=== PATIENT | female | born 1945 | race Hispanic/Latino ===

== ENCOUNTER 2017-04-29 09:01 | Inpatient (IN) | payer MEDICARE, OTHER ==
[~2017-04-29] VITALS: Ht 154.9 cm; Wt 86.6 kg
[~2017-04-29 09:01] MED LIST: ASPIRIN325 MG PO; FERROUS SULFAT324 MG PO; HAIR, SKIN & N1 EACH PO; LOSARTAN POTAS100 MG PO; NORCO 7.5-3251 EACH PO; ONE DAILY1 EAC1 PO
[2017-04-29] MEDS ORDERED: ASPIRIN 81 MG CHEW TAB PO ONE (09:45)
[2017-04-29 09:59] LABS: BASOPHILS # (AUTO) 0.1 (0.0-0.1); BASOPHILS % 0.7 % (0.0-1.0); EOSINOPHILS # (AUTO) 0.2 (0.0-0.4); EOSINOPHILS % 1.8 % (0.0-6.0); HEMATOCRIT 42.8 % (34.2-44.1); HEMOGLOBIN 15.1 g/dL (12.0-16.0); LYMPHOCYTES # (AUTO) 2.4 (1.0-3.2); LYMPHOCYTES % 28.3 % (18.0-39.1); MEAN CORPUSCULAR HEMOGLOBIN 33.2 pg (28-32); MEAN CORPUSCULAR HGB CONC 35.3 g/dL (31-35); MEAN CORPUSCULAR VOLUME 94.1 fL (81-99); MONOCYTES # (AUTO) 0.6 (0.2-0.8); MONOCYTES % 7.1 % (4.4-11.3); NEUTROPHILS # (AUTO) 5.2 (2.1-6.9); NEUTROPHILS % 61.7 % (38.7-80.0); PLATELET COUNT 167 x10e3/uL (140-360); RED BLOOD COUNT 4.55 x10e6/uL (3.6-5.1); RED CELL DISTRIBUTION WIDTH 12.6 % (11.7-14.4)
[2017-04-29 10:05] LABS: INR 1.06; PARTIAL THROMBOPLASTIN TIME 27.1 seconds (23.8-35.5)
[2017-04-29 10:07] LABS: BILIRUBIN,URINE NEGATIVE (NEGATIVE); COLOR,URINE YELLOW (YELLOW); KETONES,URINE NEGATIVE (NEGATIVE); LEUKOCYTE ESTERASE ,URINE NEGATIVE (NEGATIVE); NITRITE,URINE NEGATIVE (NEGATIVE); PROTEIN,URINE DIPSTICK NEGATIVE (NEGATIVE); URINE UROBILINOGEN 4 mg/dL (0.2 - 1)
[2017-04-29 10:12] LABS: CLARITY,URINE SL CLOUDY (CLEAR)
[2017-04-29 10:14] LABS: ALANINE AMINOTRANSFERASE 64 IU/L (0-55); ALBUMIN 4.1 g/dL (3.5-5.0); ALBUMIN/GLOBULIN RATIO 0.9 (0.8-2.0); ALKALINE PHOSPHATASE 108 IU/L (40-150); ANION GAP 16.4 mmol/L (8-16); BLOOD UREA NITROGEN 30 mg/dL (7-26); BUN/CREATININE RATIO 32 (6-25); CALCIUM 9.1 mg/dL (8.4-10.2); CARBON DIOXIDE 20 mmol/L (22-29); CHLORIDE 112 mmol/L (98-107); CREATINE KINASE 213 IU/L (29-168); CREATININE, SERUM 0.94 mg/dL (0.57-1.11); EST GLOMERULAR FILTRATION RATE 59 ML/MIN (60-); GLUCOSE 105 mg/dL (74-118); SODIUM 144 mmol/L (136-145)
[2017-04-29 10:15] LABS: POTASSIUM 4.4 mmol/L (3.5-5.1)
[2017-04-29 10:16] LABS: AMPHETAMINES SCREEN,URINE NEGATIVE (NEGATIVE); BENZODIAZEPINES SCREEN,URINE NEGATIVE (NEGATIVE); PHENCYCLIDINE SCREEN,URINE NEGATIVE (NEGATIVE)
[2017-04-29] MEDS ORDERED: MELOXICAM7.5 MG PO (10:21)
[2017-04-29] MEDS ORDERED: vimovo PO (10:21)
[2017-04-29] MEDS ORDERED: CYCLOBENZAPRINE5 MG PO (10:21)
[2017-04-29] MEDS ORDERED: GABAPENTIN100 MG PO (10:21)
[2017-04-29 10:23] LABS: EPITHELIAL CELLS,URINE MODERATE /LPF; WBC,URINE (MAN) 0-5 /HPF (0-5)
--- NOTE | 2017-04-29 10:29 | Diagnostic Imaging Report ---
Exam: Head CT without contrast History: Altered mental status Comparison studies: None Technique: Axial images were obtained from the skull base to the vertex. Coronal and sagittal images reconstructed from the axial data. Intravenous contrast: None Findings: Scalp: No abnormalities. Bones: No fractures, blastic or lytic lesions. Brain sulci: Appropriate for age. Ventricles: Normal in size and configuration. No hydrocephalus. Extra-axial spaces: No masses, no fluid collection. Parenchyma: A few scattered hypodensities in the supratentorial white matter are nonspecific but most compatible with small vessel ischemic changes. No mass, acute hemorrhage or acute or chronic cortical vascular insults. Sellar/suprasellar region: No abnormalities. Craniocervical junction: Patent foramen magnum. No Chiari one malformation. Incidental findings: Atherosclerotic calcifications in the carotid siphons. IMPRESSION: 1. No acute intracranial abnormalities. 2. Mild to moderate supratentorial chronic microvascular ischemic changes. Signed by: Dr. Ankit Monreal M.D. on 04/29/2017 10:25 AM
--- NOTE | 2017-04-29 10:32 | Diagnostic Imaging Report ---
EXAMINATION: CHEST SINGLE (PORTABLE) INDICATION: \S\SOB \S\[id number] \S\1012 \S\Y COMPARISON: 08/12/2016 FINDINGS: AP view TUBES and LINES: None. LUNGS: Limited by body habitus and low lung volumes. Mild central vascular congestion and interstitial edema. No focal consolidation. PLEURA: No pleural effusion or pneumothorax. HEART AND MEDIASTINUM: The cardiac silhouette is enlarged on this AP view. BONES AND SOFT TISSUES: No acute osseous lesion. Soft tissues are unremarkable. UPPER ABDOMEN: No free air under the diaphragm. IMPRESSION: Limited as above. Mild central vascular congestion and interstitial edema. Signed by: Dr. Tyron Jorge MD on 04/29/2017 10:28 AM
[2017-04-29] MEDS ORDERED: ONDANSETRON HCL INJ 2 MG/ML VIAL IV PRN (11:30)
[2017-04-29] MEDS: SODIUM CHLORIDE 0.9% 1000ML 1,000 ML IV SCH ×2 (11:38→15:19)
[2017-04-29] MEDS ORDERED: SODIUM CHLORIDE 0.9% 1000ML 1,000 ML ONE (11:44)
[2017-04-29] MEDS ORDERED: SODIUM CHLORIDE 0.9% 50ML 50 ML ONE (12:23)
[2017-04-29] MEDS ORDERED: IOPAMIDOL 370 MG/ML 200 ML INFUS..BTL INJ ONE (12:24)
--- NOTE | 2017-04-29 12:37 | Diagnostic Imaging Report ---
EXAM: CT Abdomen and Pelvis WITH contrast INDICATION: \S\R/O CIRRHOSIS OR OTHER HEPATIC PROBLEM \S\[id number] \S\1200 \S\N COMPARISON: None. TECHNIQUE: Abdomen and pelvis were scanned utilizing a multidetector helical scanner from the lung base to the pubic symphysis after administration of IV contrast. Coronal and sagittal reformations were obtained. Routine protocol was performed. Scan was performed when during portal venous phase. IV CONTRAST: 100 mL of Isovue-370 ORAL CONTRAST: None. COMPLICATIONS: None RADIATION DOSE: Total DLP: 875.41 mGy*cm Estimated effective dose: (DLP x 0.015 x size factor) mSv CTDIvol has been reviewed. It is below the limits set by the Radiation Protocol Committee (RPC). FINDINGS: LINES and TUBES: None. LOWER THORAX: Unremarkable HEPATOBILIARY: No signs of cirrhosis. No focal hepatic lesions. No biliary ductal dilation. GALLBLADDER: No radio-opaque stones or sludge. No wall thickening. SPLEEN: No splenomegaly. PANCREAS: No focal masses or ductal dilatation. ADRENALS: No adrenal nodules KIDNEYS/URETERS: Kidneys enhance symmetrically. No hydronephrosis. No renal mass. Bilateral subcentimeter renal hypodensities are too small to characterize. No stones. GI TRACT: No abnormal distention, wall thickening, or evidence of bowel obstruction. Appendix is not visualized. PELVIC ORGANS/BLADDER: Calcified anterior uterine body fibroid. 7 x 5.9 cm right ovarian cyst. LYMPH NODES: No lymphadenopathy. VESSELS: Unremarkable. PERITONEUM / RETROPERITONEUM: No free air or fluid. BONES: Degenerative changes of spine, especially at L5-S1. SOFT TISSUES: Unremarkable. IMPRESSION: 1. No evidence of hepatic cirrhosis. 2. 7 cm right ovarian cyst. Recommend RED CROSS EXECUTIVE DIRECTOR consult. Signed by: Dr. Tyron Jorge MD on 04/29/2017 12:33 PM
--- OUTSIDE RECORDS SUMMARY | 2017-04-29 13:27 | XMS REPORT ---
[facility] Address Unknown Phone Unavailable Care Team Providers Care Trade Mark Examiner Name Role Phone FREDI CAMEJO Unavailable Unavailable Problems This patient has no known problems. Allergies, Adverse Reactions, Alerts This patient has no known allergies or adverse reactions. Medications This patient has no known medications. Results Test Description Test Time Test Comments Text Results Atomic Results Result Comments CT ABDOMEN/PELVIS W [place] [address] Patient Name: TIMOTHY HARGROVE MR #: [id number] : 1945 Age/Sex: 71/F Req # : [id number] Adm Physician: Ordered by: FREDI CAMEJO MD Report #: [id number] Location: ER Room/Bed: Procedure: [id number] CT/CT ABDOMEN/PELVIS W Exam Date: 04/29/17 Exam Time : 1200 REPORT STATUS: Signed EXAM: CT Abdomen and Pelvis WITH contrast INDICATION: COMPARISON: None. TECHNIQUE: Abdomen and pelvis were scanned utilizing a multidetector helical scanner from the lung base to the pubic symphysis after administration of IV contrast. Coronal and sagittal reformations were obtained. Routine protocol was performed. Scan was performed when during portal venous phase. IV CONTRAST: 100 mL of Isovue-370 ORAL CONTRAST: None. COMPLICATIONS: None RADIATION DOSE: Total DLP: 875.41 mGy*cm Estimated effective dose: (DLP x 0.015 x size factor) mSv CTDIvol has been reviewed. It is below the limits set by the Radiation Protocol Committee (RPC). FINDINGS : LINES and TUBES: None. LOWER THORAX: Unremarkable HEPATOBILIARY: No signs of cirrhosis. No focal hepatic lesions. No biliary ductal dilation. GALLBLADDER: No radio-opaque stones or sludge. No wall thickening. SPLEEN: No splenomegaly. PANCREAS: No focal masses or ductal dilatation. ADRENALS: No adrenal nodules KIDNEYS/URETERS : Kidneys enhance symmetrically. No hydronephrosis. No renal mass. Bilateral subcentimeter renal hypodensities are too small to characterize. No stones. GI TRACT: No abnormal distention, wall thickening, or evidence of bowel obstruction. Appendix is not visualized. PELVIC ORGANS/BLADDER: Calcified anterior uterine body fibroid. 7 x 5.9 cm right ovarian cyst. LYMPH NODES: No lymphadenopathy. VESSELS: Unremarkable. PERITONEUM / RETROPERITONEUM: No free air or fluid. BONES: Degenerative changes of spine , especially at L5-S1. SOFT TISSUES: Unremarkable. IMPRESSION: 1. No evidence of hepatic cirrhosis. 2. 7 cm right ovarian cyst. Recommend CHIEF COUNSEL consult. Signed by: Dr. Tyron Au MD on 04/29/2017 12:33 PM Dictated By: TYRON AU MD 1233 Transcribed By: ABBY on 04/29/17 1233 COPY TO: FREDI CAMEJO MD CT BRAIN WO [place] [address] Patient Name: TIMOTHY HARGROVE MR #: [id number] : 1945 Age/Sex: 71/F Req #: [id number] Adm Physician: Ordered by: FREDI CAMEJO MD Report #: [id number] Location: Room/Bed: Procedure: [id number] CT/CT BRAIN WO Exam Date: 04/29/17 Exam Time: 1005 REPORT STATUS: Signed Exam: Head CT without contrast History: Altered mental status Comparison studies: None Technique: Axial images were obtained from the skull base to the vertex. Coronal and sagittal images reconstructed from the axial data. Intravenous contrast: None Findings: Scalp: No abnormalities. Bones: No fractures, blastic or lytic lesions. Brain sulci: Appropriate for age. Ventricles: Normal in size and configuration. No hydrocephalus. Extra-axial spaces: No masses, no fluid collection. Parenchyma: A few scattered hypodensities in the supratentorial white matter are nonspecific but most compatible with small vessel ischemic changes. No mass, acute hemorrhage or acute or chronic cortical vascular insults. Sellar/suprasellar region: No abnormalities. Craniocervical junction: Patent foramen magnum. No Chiari one malformation. Incidental findings: Atherosclerotic calcifications in the carotid siphons. IMPRESSION: 1. No acute intracranial abnormalities. 2. Mild to moderate supratentorial chronic microvascular ischemic changes. Signed by: Dr. Caty Monreal M.D. on 04/29/2017 10:25 AM Dictated By: CATY MONREAL MD 1025 Transcribed By: ABBY on 04/29/17 1025 COPY TO: FREDI CAMEJO MD [facility] [place] [address] Patient Name: TIMOTHY HARGROVE MR #: [id number] : 1945 Age/Sex: 71/F Req #: [id number] Adm Physician: Ordered by: FREDI CAMEJO MD Report # : [id number] Location: Room/Bed: Procedure: [id number] DX/CHEST SINGLE (PORTABLE) Exam Date: 04/29/17 Exam Time: 1012 REPORT STATUS: Signed EXAMINATION: CHEST SINGLE ( PORTABLE) INDICATION: COMPARISON: 08/12/2016 FINDINGS: AP view TUBES and LINES: None. LUNGS: Limited by body habitus and low lung volumes. Mild central vascular congestion and interstitial edema. No focal consolidation. PLEURA: No pleural effusion or pneumothorax. HEART AND MEDIASTINUM: The cardiac silhouette is enlarged on this AP view. BONES AND SOFT TISSUES: No acute osseous lesion. Soft tissues are unremarkable. UPPER ABDOMEN: No free air under the diaphragm. IMPRESSION: Limited as above. Mild central vascular congestion and interstitial edema. Signed by: Dr. Tyron Au MD on 04/29/2017 10:28 AM Dictated By: TYRON AU MD 1028 Transcribed By: ABBY on 04/29/17 1028 COPY TO: FREDI CAMEJO MD
[2017-04-29] MEDS: LACTULOSE SYRUP 20 GM/30 ML UDC PO SCH ×2 (14:27→22:00)
[2017-04-29 14:33] VITALS: BP 162/76
[2017-04-29 14:45] VITALS: BP 162/76
[2017-04-29 16:06] VITALS: BP 176/72
[2017-04-29] MEDS: RIFAXIMIN 550 MG TABLET PO SCH (16:57)
[2017-04-29] MEDS ORDERED: LOSARTAN POTASSIUM 100 MG TAB PO ONE (17:00)
[2017-04-29] MEDS ORDERED: GABAPENTIN 100 MG CAP PO SCH (17:00)
[2017-04-29 20:29] VITALS: BP 176/72
[2017-04-29 20:36] VITALS: BP 155/86
[2017-04-29] MEDS ORDERED: CYCLOBENZAPRINE HCL 10 MG TAB PO SCH (21:00)
[2017-04-30] VITALS (8 sets, daily range): BP systolic 128–178; BP diastolic 58–76
[2017-04-30] MEDS: SODIUM CHLORIDE 0.9% 1000ML 1,000 ML IV SCH ×2 (03:35→11:26)
[2017-04-30] MEDS: LACTULOSE SYRUP 20 GM/30 ML UDC PO SCH ×2 (06:12→16:20)
[2017-04-30 06:49] LABS: BASOPHILS # (AUTO) 0.1 (0.0-0.1); BASOPHILS % 0.7 % (0.0-1.0); EOSINOPHILS # (AUTO) 0.2 (0.0-0.4); EOSINOPHILS % 2.4 % (0.0-6.0); HEMATOCRIT 40.3 % (34.2-44.1); HEMOGLOBIN 13.9 g/dL (12.0-16.0); LYMPHOCYTES # (AUTO) 2.4 (1.0-3.2); LYMPHOCYTES % 28.7 % (18.0-39.1); MEAN CORPUSCULAR HEMOGLOBIN 33.3 pg (28-32); MEAN CORPUSCULAR HGB CONC 34.5 g/dL (31-35); MEAN CORPUSCULAR VOLUME 96.4 fL (81-99); MONOCYTES # (AUTO) 0.6 (0.2-0.8); MONOCYTES % 6.9 % (4.4-11.3); NEUTROPHILS # (AUTO) 5.2 (2.1-6.9); NEUTROPHILS % 61.1 % (38.7-80.0); PLATELET COUNT 163 x10e3/uL (140-360); RED BLOOD COUNT 4.18 x10e6/uL (3.6-5.1); RED CELL DISTRIBUTION WIDTH 12.7 % (11.7-14.4)
[2017-04-30 07:11] LABS: ANION GAP 14.2 mmol/L (8-16); BLOOD UREA NITROGEN 25 mg/dL (7-26); BUN/CREATININE RATIO 28 (6-25); CALCIUM 8.8 mg/dL (8.4-10.2); CARBON DIOXIDE 20 mmol/L (22-29); CHLORIDE 113 mmol/L (98-107); CREATININE, SERUM 0.88 mg/dL (0.57-1.11); EST GLOMERULAR FILTRATION RATE > 60 ML/MIN (60-); GLUCOSE 89 mg/dL (74-118); POTASSIUM 4.2 mmol/L (3.5-5.1); SODIUM 143 mmol/L (136-145)
[2017-04-30 08:03] LABS: CHOL/HDL RATIO 3.8 (3.0-3.6)
[2017-04-30] MEDS: MELOXICAM 7.5 MG TAB PO SCH (08:38)
[2017-04-30] MEDS: LOSARTAN POTASSIUM 100 MG TAB PO SCH (08:38)
[2017-04-30] MEDS: RIFAXIMIN 550 MG TABLET PO SCH (08:38)
[2017-04-30] MEDS: FERROUS SULFATE 325 MG TAB PO SCH (08:38)
[2017-04-30] MEDS: VIMOVO PO SCH (09:00)
--- NOTE | 2017-04-30 12:46 | History and Physical ---
REASON FOR ADMISSION: This 71-year-old female comes in with acute mental status changes. HISTORY OF PRESENT ILLNESS: Ms. Crews was in her usual state of health until a day prior to admission. The patient's family noticed mental status changes, which were acute. No prior history of dementia. No prior history of taking any medications prior to arrival. The patient was brought in to rule out stroke. The patient usually is alert and oriented with no symptoms. The patient had a similar episode about a week ago with slurred speech and had a facial droop for the last 2 to 3 days. The patient has been seen recently also by her primary care physician. PAST MEDICAL HISTORY: History of hypertension. FAMILY HISTORY: Diabetes mellitus and hypertension. MEDICATIONS SHE TAKES AT HOME: Flexeril, ferrous sulfate, gabapentin 100 mg 3 capsules p.o. b.i.d., losartan 100 mg, meloxicam 7.5, and 520. SURGICAL HISTORY: Includes a hysterectomy and bilateral knee replacement. REVIEW OF SYSTEMS: Negative for chest pain or shortness of breath. No nausea or vomiting. Past episode of abdominal pain in right upper quadrant of abdomen. Neurologically, positive for mental status changes. Positive for weakness, especially on the right side. No other complaints. PHYSICAL EXAMINATION GENERAL: Alert and oriented times 3 right now. According to the ER note, the patient was not alert. HEENT: Normocephalic and atraumatic. There is no icterus present. CV: S1 and S2 normal, regular rate and rhythm. ABDOMEN: Tender in the right upper quadrant. EXTREMITIES: No clubbing, no cyanosis, no edema. IMAGING STUDIES: CT of the abdomen did not show any changes in her for hepatic cirrhosis. Carotid Doppler preliminary report is no stenosis. Brain CT: Microvascular changes, otherwise normal. Chest x-ray was also within normal with mild vascular congestion. LABS: Sodium 144, chloride 112, BUN 30, creatinine 0.94. ALT and AST 70 and 64 and total bili of 1.5. Creatine kinase is 213. The rest of the labs are essentially normal. Ammonia was 117. ASSESSMENT 1. Acute mental status changes 2. Hyperammonemia. 3. Abdominal pain and hyperbilirubinemia. 4. History of hypertension. PLAN 1. We will go ahead and follow through with an ultrasound of the gallbladder and also HIDA scan in the morning. 2. Continue checking ammonia levels to see if it is trending down. The patient has been started on lactulose. She has been hydrated. Right now, we will keep her under hydration and keep n.p.o. right now until the HIDA scan is back. 3. Further recommendations per clinical course. We will continue to monitor the patient. Her mental status seems to be improving. Also, will check lipid levels. Job#: [id number]
[2017-04-30] MEDS ORDERED: CLONIDINE HCL 0.1 MG TAB PO PRN (15:30)
[2017-04-30] MEDS ORDERED: ACETAMINOPHEN 325 MG TAB PO PRN (15:30)
[2017-05-01] VITALS (8 sets, daily range): BP systolic 115–181; BP diastolic 53–82
[2017-05-01] MEDS: SODIUM CHLORIDE 0.9% 1000ML 1,000 ML IV SCH ×2 (01:30→21:30)
[2017-05-01 07:05] LABS: BASOPHILS # (AUTO) 0.1 (0.0-0.1); BASOPHILS % 0.6 % (0.0-1.0); EOSINOPHILS # (AUTO) 0.3 (0.0-0.4); EOSINOPHILS % 3.4 % (0.0-6.0); HEMOGLOBIN 13.8 g/dL (12.0-16.0); LYMPHOCYTES % 22.8 % (18.0-39.1); MEAN CORPUSCULAR HEMOGLOBIN 33.2 pg (28-32); MEAN CORPUSCULAR HGB CONC 34.5 g/dL (31-35); MEAN CORPUSCULAR VOLUME 96.2 fL (81-99); MONOCYTES # (AUTO) 0.6 (0.2-0.8); MONOCYTES % 6.4 % (4.4-11.3); NEUTROPHILS # (AUTO) 5.9 (2.1-6.9); NEUTROPHILS % 66.6 % (38.7-80.0); PLATELET COUNT 143 x10e3/uL (140-360); RED BLOOD COUNT 4.16 x10e6/uL (3.6-5.1); RED CELL DISTRIBUTION WIDTH 12.6 % (11.7-14.4)
[2017-05-01 07:31] LABS: ALANINE AMINOTRANSFERASE 50 IU/L (0-55); ALBUMIN 3.3 g/dL (3.5-5.0); ALBUMIN/GLOBULIN RATIO 0.9 (0.8-2.0); ALKALINE PHOSPHATASE 82 IU/L (40-150); ANION GAP 9.5 mmol/L (8-16); BLOOD UREA NITROGEN 20 mg/dL (7-26); BUN/CREATININE RATIO 24 (6-25); CALCIUM 8.6 mg/dL (8.4-10.2); CARBON DIOXIDE 23 mmol/L (22-29); CHLORIDE 114 mmol/L (98-107); CREATININE, SERUM 0.84 mg/dL (0.57-1.11); EST GLOMERULAR FILTRATION RATE > 60 ML/MIN (60-); GLUCOSE 99 mg/dL (74-118); POTASSIUM 4.5 mmol/L (3.5-5.1); SODIUM 142 mmol/L (136-145)
[2017-05-01] MEDS: LACTULOSE SYRUP 20 GM/30 ML UDC PO SCH ×2 (09:00→17:32)
[2017-05-01] MEDS: VIMOVO PO SCH (09:00)
[2017-05-01] MEDS ORDERED: SINCALIDE 3 MCG/VIAL INJ ONE (09:02)
[2017-05-01] MEDS: FERROUS SULFATE 325 MG TAB PO SCH (10:30)
[2017-05-01] MEDS: LOSARTAN POTASSIUM 100 MG TAB PO SCH (10:37)
[2017-05-01] MEDS: MELOXICAM 7.5 MG TAB PO SCH (10:38)
--- NOTE | 2017-05-01 15:54 | Diagnostic Imaging Report ---
PROCEDURE:US GALLBLADDER COMPARISON:None. INDICATIONS:ABDOMEN PAIN TECHNIQUE: Livingston-scale and color Doppler transverse and longitudinal images of the right upper quadrant of the abdomen were obtained. FINDINGS: Liver: 13.3 cm in right mid-clavicular line. Increased echogenicity. No masses. No intrahepatic biliary ductal dilatation. Main portal vein: 0.6 cm Gallbladder: Present. No evidence of sludge, gallstones, gallbladder wall thickening, or pericholecystic fluid Common Bile Duct: 0.3 cm Sonographic Mccormack's sign: Negative Right kidney: 9.8 cm. Normal echogenicity. No solid masses or hydronephrosis. Pancreas: The visualized portions are increased in echotexture without mass or ductal dilatation.. Inferior vena cava: Patent Aorta: Within normal limits Ascites: None in the right upper quadrant of the abdomen. CONCLUSION: 1. Increased hepatic echotexture suggestive of steatosis. 2. Pancreas lipomatosis. 3. Normal gallbladder and biliary tree. Dictated by: Gabriel Cantor M.D. on 05/01/2017 at 15:54 Electronically approved by: Gabriel Cantor M.D. on 05/01/2017 at 15:54
--- NOTE | 2017-05-01 20:35 | Diagnostic Imaging Report ---
Hepatobiliary Scan with Gallbladder Ejection Fraction Clinical information: 71 F with abdominal pain and hyperbilirubinemia Technique: Following intravenous administration of 5.0 millicuries of Tc-99m mebrofenin, dynamic images of the abdomen in the anterior projection were obtained through 40 minutes. Sincalide (CCK analog) 2.0 micrograms was administered intravenously over 30 minutes with additional imaging for determination of gallbladder ejection fraction. Discussion: Perfusion of the liver is normal. Extraction of tracer by the liver parenchyma is normal. Tracer appears promptly within the biliary tract. The gallbladder begins to fill at 10 minutes post injection of tracer and fills adequately. Tracer is seen in the small bowel during the sincalide infusion. There is no contractile response by the gallbladder to the pharmacologic dose of sincalide. No emptying of the gallbladder occurs during the 30 minute infusion. Impression: 1. Filling of the gallbladder excludes acute cystic duct obstruction/acute cholecystitis. 2. The gallbladder ejection fraction is undefined as there is no emptying of the gallbladder during the infusion of sincalide. This absence of a contractile response to sincalide supports the clinical diagnosis of chronic cholecystitis/gallbladder dyskinesia. Signed by: Dr. Mela Segura M.D. on 05/01/2017 8:32 PM
[2017-05-02] VITALS: BP 141/65
[2017-05-02] MEDS: SODIUM CHLORIDE 0.9% 1000ML 1,000 ML IV SCH (00:03)
[2017-05-02 04:00] VITALS: BP 143/66
[2017-05-02 08:34] VITALS: BP 163/69
[2017-05-02] MEDS: MELOXICAM 7.5 MG TAB PO SCH (09:00)
[2017-05-02] MEDS: FERROUS SULFATE 325 MG TAB PO SCH (09:00)
[2017-05-02] MEDS: VIMOVO PO SCH ×2 (09:00→10:05)
[2017-05-02] MEDS: LACTULOSE SYRUP 20 GM/30 ML UDC PO SCH ×2 (09:00→16:13)
[2017-05-02] MEDS: LOSARTAN POTASSIUM 100 MG TAB PO SCH ×2 (09:00→10:04)
--- NOTE | 2017-05-02 10:53 | Diagnostic Imaging Report ---
Exam: Brain MRI without IV contrast History: Altered mental status Comparison studies: Head CT 04/29/2017 Technique: Sagittal and axial T2 FS, axial DWI, axial T2*GRE, axial T2 FLAIR and 3-D T1 with axial, coronal and sagittal reformats. Intravenous contrast: None Findings: Scalp: Oral and signal. No masses. Bone marrow: Normal in signal intensity. Brain sulci: Appropriate for age. Ventricles: Normal in size. No hydrocephalus. Extra axial spaces: Normal T2 hyperintense CSF signal at the Meckel's cave on the right is not visualized when compared to the contralateral left side. Finding is nonspecific but raises the possibility for intracanalicular mass, such as a nerve sheath tumor. No gross atrophy of the included muscles of mastication. No other mass. No fluid collection. Parenchyma: No mass, hemorrhage or acute ischemia. A few scattered and mildly confluent T2 FLAIR hyperintense signal changes in the supratentorial white matter are nonspecific but most compatible with chronic small vessel ischemic changes. Suprasellar region: No abnormalities. Craniocervical junction: Patent foramen magnum. No Chiari malformation. Vessels: Normal flow-voids in the arteries and sinuses. IMPRESSION: 1. No acute intracranial abnormalities. 2. Moderate supratentorial chronic microvascular ischemic changes. 3. Absence of normal signal within right Meckel's cave may be an anatomical variant or possibly related to small intracanalicular mass lesion such as small nerve sheath tumor or possibly meningioma. Finding's could be correlated clinically for symptoms referrable to the right trigeminal nerve. Recommend nonemergent skull base MRI without and with IV contrast to further evaluate. Signed by: Dr. Ankit Monreal M.D. on 05/02/2017 10:50 AM
[2017-05-02 12:00] VITALS: BP 120/56
[2017-05-02 15:52] VITALS: BP 117/55
[2017-05-02 20:00] VITALS: BP 115/69
[2017-05-03] VITALS (8 sets, daily range): BP systolic 100–161; BP diastolic 49–76
[2017-05-03] MEDS: LACTULOSE SYRUP 20 GM/30 ML UDC PO SCH ×2 (09:00→16:40)
[2017-05-03] MEDS: LOSARTAN POTASSIUM 100 MG TAB PO SCH (10:17)
[2017-05-03] MEDS: MELOXICAM 7.5 MG TAB PO SCH (16:40)
[2017-05-03] MEDS: FERROUS SULFATE 325 MG TAB PO SCH (16:40)
== END 2017-05-03 20:32 | disposition home or self-care (01) | DRG 442 ==
LOC: ER 09:01 → EDBEDREQ 11:45 → ERHOLD 13:22 → MED/SURG 13:26
PROVIDERS: ADMIT Family Medicine; ATTEND Family Medicine
DX: K72.00 Acute and subacute hepatic failure without coma (principal); R47.01 Aphasia; E72.20 Disorder of urea cycle metabolism, unspecified; E80.6 Other disorders of bilirubin metabolism; I10 Essential (primary) hypertension; Z96.653 Presence of artificial knee joint, bilateral; N83.209 Unspecified ovarian cyst, unspecified side
CPT/HCPCS: 36415; 70450; 70551; 71045; 74177; 76705; 78227; 80048; 80053; 80061; 80307; 81001; 82140; 82550; 82553; 84443; 84484; 85025; 85610; 85730; 93005; 93880; 97139; 99285; A9537; J2405; J2805; J7030; Q9967

== ENCOUNTER → 2017-05-29 | Outpatient (CLI) | payer MEDICARE, OTHER ==
[~2017-05-29] MED LIST changes: +CYCLOBENZAPRINE5 MG PO; +GABAPENTIN100 MG PO; +MELOXICAM7.5 MG PO; +vimovo PO
--- NOTE | 2017-05-29 16:20 | Diagnostic Imaging Report ---
Liver-Spleen Scan with SPECT Clinical information: 71 F with elevated LFTs and right sided abdominal pain that radiates to her back. Abnormal gallbladder ejection fraction with sincalide Comparison: HIDA scan with sincalide 05/01/2017; CT abdomen 04/29/2017 Report: Following intravenous administration of 7.3 mCi of Tc-99 and sulfur colloid, images of the liver and spleen were obtained in multiple projections. Tomographic images of the upper abdomen were also obtained. The liver appears generally normal in size. The spleen appears normal in size. Distribution of tracer activity is homogeneous throughout the hepatic and splenic parenchyma. No focal abnormalities are identified. There is very mildly increased tracer activity seen in the bone marrow and lungs. There is no apparent shift of tracer activity from the hepatic parenchyma to the spleen. Impression: Abnormal liver-spleen scan 1. There is no scan evidence of hepatic or splenic masses. 2. 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 Correlate with liver function tests. 3. Hypersplenism is not present. Signed by: Dr. Mela Segura M.D. on 05/29/2017 4:16 PM
== END | disposition home or self-care (01) ==
LOC: NM 13:51
PROVIDERS: ATTEND Internal Medicine Gastroenterology
DX: K76.0 Fatty (change of) liver, not elsewhere classified (principal); K74.60 Unspecified cirrhosis of liver; K76.89 Other specified diseases of liver
CPT/HCPCS: 78205; A9541; A9512

== ENCOUNTER → 2018-03-30 | Day surgery (SDC) | payer MEDICARE, OTHER ==
[2018-03-06 13:13] LABS: BASOPHILS # (AUTO) 0.1 (0.0-0.1); BASOPHILS % 1.1 % (0.0-1.0); EOSINOPHILS # (AUTO) 0.1 (0.0-0.4); EOSINOPHILS % 2.5 % (0.0-6.0); HEMATOCRIT 38.5 % (34.2-44.1); HEMOGLOBIN 13.6 g/dL (12.0-16.0); LYMPHOCYTES # (AUTO) 1.9 (1.0-3.2); LYMPHOCYTES % 34.7 % (18.0-39.1); MEAN CORPUSCULAR HEMOGLOBIN 32.2 pg (28-32); MEAN CORPUSCULAR HGB CONC 35.3 g/dL (31-35); MONOCYTES # (AUTO) 0.4 (0.2-0.8); MONOCYTES % 7.9 % (4.4-11.3); NEUTROPHILS % 53.6 % (38.7-80.0); PLATELET COUNT 139 x10e3/uL (140-360); RED BLOOD COUNT 4.23 x10e6/uL (3.6-5.1); RED CELL DISTRIBUTION WIDTH 12.6 % (11.7-14.4)
[~2018-03-30] MED LIST changes: +FENTANYL CITRATE/PF 100MCG/2 ML INJ ONE; +HYOSCYAMINE SULFATE 0.5 MG/ML INJ ONE; +LACTULOSE20 GM/30 M PO; +MIDAZOLAM HCL 2 MG/2 ML VIAL ONE; +PHENTERMINE H37.5 MG PO; +PHYTONADIONE 10 MG/ML AMP SC NR; +PROPOFOL IV EMULSION 10 MG/ML 50 ML VIAL ONE; +ULTRAM50 MG PO
[2018-03-30 10:00] VITALS: BP 114/62
--- NOTE | 2018-03-30 10:29 | Operative Report ---
DATE OF PROCEDURE: March 30, 2018 REFERRING PHYSICIAN: Dr. Ronni Ambrosio PROCEDURES PERFORMED 1. Esophagogastroduodenoscopy with biopsies. 2. Colonoscopy with polypectomy. INDICATIONS FOR EGD: Epigastric pain, nausea and bloating. INDICATIONS FOR COLONOSCOPY: Colorectal cancer screening. MEDICATION: Patient was done under MAC. Please see anesthesiologist's note. PROCEDURE: With the patient in the left lateral decubitus position, the flexible fiberoptic Olympus gastroscope was introduced into the esophagus under direct visualization without any difficulty. There were 2 minute nodules noted in the cervical esophagus and those were biopsied. There was some patchy erythema noted in the distal esophagus. The scope was then advanced with ease into the stomach. The mucosa overlying the antrum and the body revealed some changes compatible with mild portal hypertensive gastropathy. Biopsies were obtained from the antrum. There were some atrophic changes in the body and biopsies were obtained from the body to rule out atrophic gastritis. Pylorus appeared to be of normal contour and shape. It was intubated with ease. The scope was advanced all the way to the 2nd portion of the duodenum. There was a prominent fold noted in the proximal 2nd portion and that was biopsied. The scope was then withdrawn back into the stomach and retroflexed. The mucosa overlying the fundus and the cardia grossly appeared to be within normal limits. The scope was then straightened out. It was subsequently withdrawn. Patient tolerated the procedure well. IMPRESSION 1. Minute nodules, cervical esophagus, biopsied. 2. Distal esophagitis, mild. 3. Portal hypertensive gastropathy, mild. 4. Rule out atrophic gastritis, body. 5. Prominent fold, proximal 2nd portion, biopsied. PLAN: Follow up histology. Initiate Protonix 40 mg 1 p.o. q.a.m. a.c. Patient was then turned around. After adequate lubrication of the anal canal, a flexible fiberoptic Olympus colonoscope was inserted into the rectum with ease advanced all the way to the cecum. Mucosa overlying the cecum appeared to be within normal limits. One polyp was snared and 1 polyp was hot biopsied from the hepatic flexure. The transverse colon appeared to be within normal limits. Three polyps were snared from the descending colon. Two polyps were snared and two polyps were hot biopsied from the sigmoid colon. Four polyps were hot biopsied from the rectum. The scope was then retroflexed into the distal rectum. Large internal hemorrhoids were noted, none of which was actively bleeding. The scope was then straightened out. It was subsequently withdrawn. Patient tolerated the procedure well. IMPRESSION 1. Hepatic flexure polyps times 2, one snared and one hot biopsied. 2. Descending colon polyps times 3, snared. 3. Sigmoid colon polyps times 4, 2 snared and 2 hot biopsied. 4. Rectal polyps times 4, hot biopsied. 5. Internal hemorrhoids, none actively bleeding. PLAN: Follow up histology. Initiate high-fiber and low-fat diet. Initiate high-fiber supplement. A total of 13 polyps were removed. Timing of followup colonoscopy pending pathology report. Job#: [id number] RI cc:RONNI AMBROSIO MD
== END | disposition home or self-care (01) ==
LOC: OR 05:25
PROVIDERS: ATTEND Internal Medicine Gastroenterology
DX: Z12.11 Encounter for screening for malignant neoplasm of colon (principal); R14.0 Abdominal distension (gaseous); I10 Essential (primary) hypertension; N83.209 Unspecified ovarian cyst, unspecified side; M19.90 Unspecified osteoarthritis, unspecified site; K76.0 Fatty (change of) liver, not elsewhere classified; K74.60 Unspecified cirrhosis of liver; R13.10 Dysphagia, unspecified; R94.5 Abnormal results of liver function studies; K20.9 Esophagitis, unspecified; K76.6 Portal hypertension; K31.89 Other diseases of stomach and duodenum; K63.5 Polyp of colon; K64.8 Other hemorrhoids; K62.1 Rectal polyp; K29.50 Unspecified chronic gastritis without bleeding; B96.81 Helicobacter pylori [H. pylori] as the cause of diseases classified elsewhere; D12.4 Benign neoplasm of descending colon; K22.8 Other specified diseases of esophagus; Z01.812 Encounter for preprocedural laboratory examination
CPT/HCPCS: 36415; 43239; 45384; 45385; 85025; 88305; 88312; 93005; J1980; J2250; J2704; J3430; 45378

== ENCOUNTER → 2019-12-04 | Day surgery (SDC) | payer OTHER ==
[2019-11-29 12:04] LABS: BASOPHILS # (AUTO) 0.1 (0.0-0.1); BASOPHILS % 1.1 % (0.0-1.0); EOSINOPHILS # (AUTO) 0.2 (0.0-0.4); EOSINOPHILS % 3.7 % (0.0-6.0); HEMATOCRIT 35.9 % (34.2-44.1); HEMOGLOBIN 11.9 g/dL (12.0-16.0); LYMPHOCYTES % 37.1 % (18.0-39.1); MEAN CORPUSCULAR HEMOGLOBIN 29.7 pg (28-32); MEAN CORPUSCULAR HGB CONC 33.1 g/dL (31-35); MEAN CORPUSCULAR VOLUME 89.5 fL (81-99); MONOCYTES # (AUTO) 0.4 (0.2-0.8); MONOCYTES % 7.4 % (4.4-11.3); NEUTROPHILS # (AUTO) 2.7 (2.1-6.9); NEUTROPHILS % 50.7 % (38.7-80.0); PLATELET COUNT 127 x10e3/uL (140-360); RED BLOOD COUNT 4.01 x10e6/uL (3.6-5.1); RED CELL DISTRIBUTION WIDTH 13.1 % (11.7-14.4)
[~2019-12-04] VITALS: Ht 154.9 cm; Wt 90.7 kg
[~2019-12-04] MED LIST changes: +BALANCED SALT SOLN (OPTH) 15 ML BTL IO ONE; +CYCLOPENTOLATE HCL 1% OPTH SOLN 2ML BTL ONE; +DITROPAN XL5 MG PO; +EPINEPHRINE HCL 1:1000 1ML 1 MG/ML AMP ONE; -FENTANYL CITRATE/PF 100MCG/2 ML INJ ONE; -HYOSCYAMINE SULFATE 0.5 MG/ML INJ ONE; +IBUPROFEN400 MG PO; +LIDOCAINE HCL-PF 4% 40 MG/1 ML 5ML AMP ONE; +METAMUCIL660 GM PO; +MILK THISTLE150 MG PO; +MOXIFLOXACIN HCL(OPTH) 3 ML BTL ONE; +MULTI-VITAMIN1 EACH; +PHENYLEPHRINE HCL 2 ML DROPS ONE; -PHYTONADIONE 10 MG/ML AMP SC NR; +POVIDONE IODINE 5% (OPTH) 30 ML BTL ONE; -PROPOFOL IV EMULSION 10 MG/ML 50 ML VIAL ONE; +TROPICAMIDE 1% OPTH SOLN 3ML ONE; +VITAMINS FOR H1 EACH
[2019-12-04 11:40] VITALS: BP 127/63
== END | disposition home or self-care (01) ==
LOC: OR 07:20
PROVIDERS: ATTEND Ophthalmology
DX: H25.811 Combined forms of age-related cataract, right eye (principal); I10 Essential (primary) hypertension; R06.09 Other forms of dyspnea; Z01.810 Encounter for preprocedural cardiovascular examination; Z01.812 Encounter for preprocedural laboratory examination; Z11.59 Encounter for screening for other viral diseases
CPT/HCPCS: 36415; 66984; 85025; 93005; J0171; J2250; U0002; V2632

== ENCOUNTER → 2020-01-30 | Day surgery (SDC) | payer OTHER ==
[2020-01-27 13:21] LABS: BASOPHILS # (AUTO) 0.1 (0.0-0.1); BASOPHILS % 1.2 % (0.0-1.0); EOSINOPHILS # (AUTO) 0.3 (0.0-0.4); EOSINOPHILS % 4.8 % (0.0-6.0); HEMATOCRIT 36.9 % (34.2-44.1); HEMOGLOBIN 12.1 g/dL (12.0-16.0); LYMPHOCYTES # (AUTO) 2.4 (1.0-3.2); LYMPHOCYTES % 35.2 % (18.0-39.1); MEAN CORPUSCULAR HEMOGLOBIN 29.3 pg (28-32); MEAN CORPUSCULAR HGB CONC 32.8 g/dL (31-35); MEAN CORPUSCULAR VOLUME 89.3 fL (81-99); MONOCYTES # (AUTO) 0.6 (0.2-0.8); MONOCYTES % 9.2 % (4.4-11.3); NEUTROPHILS # (AUTO) 3.3 (2.1-6.9); NEUTROPHILS % 49.5 % (38.7-80.0); PLATELET COUNT 161 x10e3/uL (140-360); RED BLOOD COUNT 4.13 x10e6/uL (3.6-5.1); RED CELL DISTRIBUTION WIDTH 13.8 % (11.7-14.4)
[~2020-01-30] MED LIST changes: +BUPIVACAINE HC 0.75% PF 10ML VIAL INJ ONE; +FENTANYL CITRATE/PF 100MCG/2 ML INJ ONE; +LIDOCAINE 2% /EPINEPHRINE 20 ML SDV INJ ONE; +PILOCARPINE HCL(OPTH) 15 ML LIQD ONE; +TOBRAMYCIN/DEXAMETHASONE(OPTH) 3.5 GM TUBE ONE
[2020-01-30 08:20] VITALS: BP 131/68
== END | disposition home or self-care (01) ==
LOC: OR 05:21
PROVIDERS: ATTEND Ophthalmology
DX: H25.812 Combined forms of age-related cataract, left eye (principal); I10 Essential (primary) hypertension; K21.9 Gastro-esophageal reflux disease without esophagitis; Z01.812 Encounter for preprocedural laboratory examination; Z20.828 Contact with and (suspected) exposure to other viral communicable diseases
CPT/HCPCS: 36415; 85025; J0171; J2001; J2250; J3010; U0002

== ENCOUNTER 2021-01-10 09:02 | Inpatient (IN) | payer MEDICARE, OTHER ==
[~2021-01-10] VITALS: Ht 154.9 cm; Wt 86.6 kg
[~2021-01-10 09:02] MED LIST changes: -BALANCED SALT SOLN (OPTH) 15 ML BTL IO ONE; -BUPIVACAINE HC 0.75% PF 10ML VIAL INJ ONE; -CYCLOPENTOLATE HCL 1% OPTH SOLN 2ML BTL ONE; -EPINEPHRINE HCL 1:1000 1ML 1 MG/ML AMP ONE; -FENTANYL CITRATE/PF 100MCG/2 ML INJ ONE; -LIDOCAINE 2% /EPINEPHRINE 20 ML SDV INJ ONE; -LIDOCAINE HCL-PF 4% 40 MG/1 ML 5ML AMP ONE; -MIDAZOLAM HCL 2 MG/2 ML VIAL ONE; -MOXIFLOXACIN HCL(OPTH) 3 ML BTL ONE; -PHENYLEPHRINE HCL 2 ML DROPS ONE; -PILOCARPINE HCL(OPTH) 15 ML LIQD ONE; -POVIDONE IODINE 5% (OPTH) 30 ML BTL ONE; -TOBRAMYCIN/DEXAMETHASONE(OPTH) 3.5 GM TUBE ONE; -TROPICAMIDE 1% OPTH SOLN 3ML ONE
[2021-01-10 09:21] LABS: BASOPHILS # (AUTO) 0.1 (0.0-0.1); BASOPHILS % 1.4 % (0.0-1.0); EOSINOPHILS # (AUTO) 0.3 (0.0-0.4); EOSINOPHILS % 4.6 % (0.0-6.0); HEMATOCRIT 34.2 % (34.2-44.1); HEMOGLOBIN 11.2 g/dL (12.0-16.0); LYMPHOCYTES # (AUTO) 2.2 (1.0-3.2); LYMPHOCYTES % 39.3 % (18.0-39.1); MEAN CORPUSCULAR HEMOGLOBIN 28.3 pg (28-32); MEAN CORPUSCULAR HGB CONC 32.7 g/dL (31-35); MEAN CORPUSCULAR VOLUME 86.4 fL (81-99); MONOCYTES # (AUTO) 0.5 (0.2-0.8); MONOCYTES % 9.1 % (4.4-11.3); NEUTROPHILS # (AUTO) 2.6 (2.1-6.9); NEUTROPHILS % 45.4 % (38.7-80.0); PLATELET COUNT 168 x10e3/uL (140-360); RED BLOOD COUNT 3.96 x10e6/uL (3.6-5.1); RED CELL DISTRIBUTION WIDTH 14.7 % (11.7-14.4)
[2021-01-10 09:28] LABS: INR 0.96; PARTIAL THROMBOPLASTIN TIME 28.8 seconds (23.8-35.5); PROTHROMBIN TIME 13.5 seconds (11.9-14.5)
[2021-01-10 09:38] LABS: ALANINE AMINOTRANSFERASE 47 IU/L (0-55); ALBUMIN 3.5 g/dL (3.5-5.0); ALBUMIN/GLOBULIN RATIO 0.8 (0.8-2.0); ALKALINE PHOSPHATASE 85 IU/L (40-150); ANION GAP 13.8 mmol/L (8-16); BLOOD UREA NITROGEN 14 mg/dL (7-26); BUN/CREATININE RATIO 16 (6-25); CALCIUM 9.3 mg/dL (8.4-10.2); CARBON DIOXIDE 17 mmol/L (22-29); CHLORIDE 115 mmol/L (98-107); CREATINE KINASE 293 IU/L (29-168); CREATININE, SERUM 0.87 mg/dL (0.57-1.11); EST GLOMERULAR FILTRATION RATE 63 ML/MIN (60-); GLUCOSE 129 mg/dL (74-118); MAGNESIUM 1.7 MG/DL (1.3-2.1); POTASSIUM 3.8 mmol/L (3.5-5.1); SODIUM 142 mmol/L (136-145)
[2021-01-10] MEDS ORDERED: ONDANSETRON HCL INJ 2MG/ML 2ML 2 MG/ML VIAL IV PRN (11:00)
[2021-01-10] MEDS: LACTULOSE SYRUP 20 GM/30 ML UDC PO SCH ×2 (11:29→17:32)
[2021-01-10 12:12] LABS: CLARITY,URINE SL CLOUDY (CLEAR); COLOR,URINE YELLOW (YELLOW); KETONES,URINE NEGATIVE (NEGATIVE); LEUKOCYTE ESTERASE ,URINE TRACE (NEGATIVE); NITRITE,URINE NEGATIVE (NEGATIVE); PROTEIN,URINE DIPSTICK NEGATIVE (NEGATIVE); URINE UROBILINOGEN 0.2 mg/dL (0.2 - 1)
[2021-01-10 12:13] VITALS: BP 155/65
[2021-01-10 12:20] LABS: BACTERIA,URINE FEW /HPF; EPITHELIAL CELLS,URINE MODERATE /LPF; RBC,URINE 0-5 /HPF (0-5)
[2021-01-10 14:06] VITALS: BP 155/65
[2021-01-10 16:16] VITALS: BP 125/75
[2021-01-10 20:00] VITALS: BP 136/65
[2021-01-11] VITALS (8 sets, daily range): BP systolic 99–131; BP diastolic 60–74
[2021-01-11] MEDS: LACTULOSE SYRUP 20 GM/30 ML UDC PO SCH ×4 (00:27→17:41)
[2021-01-11 05:13] LABS: BASOPHILS # (AUTO) 0.1 (0.0-0.1); BASOPHILS % 1.2 % (0.0-1.0); EOSINOPHILS # (AUTO) 0.4 (0.0-0.4); EOSINOPHILS % 5.4 % (0.0-6.0); HEMATOCRIT 31.4 % (34.2-44.1); HEMOGLOBIN 10.2 g/dL (12.0-16.0); LYMPHOCYTES # (AUTO) 3.3 (1.0-3.2); LYMPHOCYTES % 47.8 % (18.0-39.1); MEAN CORPUSCULAR HEMOGLOBIN 27.8 pg (28-32); MEAN CORPUSCULAR HGB CONC 32.5 g/dL (31-35); MEAN CORPUSCULAR VOLUME 85.6 fL (81-99); MONOCYTES # (AUTO) 0.6 (0.2-0.8); MONOCYTES % 8.9 % (4.4-11.3); NEUTROPHILS # (AUTO) 2.5 (2.1-6.9); NEUTROPHILS % 36.6 % (38.7-80.0); PLATELET COUNT 158 x10e3/uL (140-360); RED BLOOD COUNT 3.67 x10e6/uL (3.6-5.1); RED CELL DISTRIBUTION WIDTH 14.7 % (11.7-14.4)
[2021-01-11 05:52] LABS: ALBUMIN 3.1 g/dL (3.5-5.0); ALBUMIN/GLOBULIN RATIO 0.8 (0.8-2.0); ANION GAP 11.6 mmol/L (8-16); CALCIUM 8.7 mg/dL (8.4-10.2); CREATININE, SERUM 0.94 mg/dL (0.57-1.11); POTASSIUM 3.6 mmol/L (3.5-5.1)
[2021-01-11] MEDS: RIFAXIMIN 550 MG TABLET PO SCH (16:06)
[2021-01-12] VITALS: BP 111/58
[2021-01-12] MEDS: LACTULOSE SYRUP 20 GM/30 ML UDC PO SCH ×3 (00:18→12:00)
[2021-01-12 04:00] VITALS: BP 116/58
[2021-01-12 05:02] LABS: BASOPHILS # (AUTO) 0.1 (0.0-0.1); BASOPHILS % 1.1 % (0.0-1.0); EOSINOPHILS # (AUTO) 0.4 (0.0-0.4); EOSINOPHILS % 5.9 % (0.0-6.0); HEMATOCRIT 32.3 % (34.2-44.1); HEMOGLOBIN 10.4 g/dL (12.0-16.0); LYMPHOCYTES # (AUTO) 2.3 (1.0-3.2); LYMPHOCYTES % 36.8 % (18.0-39.1); MEAN CORPUSCULAR HGB CONC 32.2 g/dL (31-35); MEAN CORPUSCULAR VOLUME 86.8 fL (81-99); MONOCYTES # (AUTO) 0.8 (0.2-0.8); MONOCYTES % 11.9 % (4.4-11.3); NEUTROPHILS # (AUTO) 2.8 (2.1-6.9); NEUTROPHILS % 44.1 % (38.7-80.0); PLATELET COUNT 149 x10e3/uL (140-360); RED BLOOD COUNT 3.72 x10e6/uL (3.6-5.1); RED CELL DISTRIBUTION WIDTH 14.6 % (11.7-14.4)
[2021-01-12 05:27] LABS: ALBUMIN 3.2 g/dL (3.5-5.0); ALBUMIN/GLOBULIN RATIO 0.9 (0.8-2.0); ANION GAP 11.5 mmol/L (8-16); CREATININE, SERUM 1.57 mg/dL (0.57-1.11); POTASSIUM 3.5 mmol/L (3.5-5.1)
[2021-01-12] MEDS ORDERED: ONDANSETRON HCL 4 MG ORAL DISINTEGRATING TAB PO PRN (07:45)
[2021-01-12 08:00] VITALS: BP 107/58
[2021-01-12 08:33] VITALS: BP 107/58
[2021-01-12] MEDS: RIFAXIMIN 550 MG TABLET PO SCH (08:35)
[2021-01-12] MEDS ORDERED: LOSARTAN POTASSIUM 100 MG TAB PO SCH (09:00)
[2021-01-12] MEDS ORDERED: LACTULOSE20 GM/30 M PO (09:41)
[2021-01-12 11:52] VITALS: BP 114/65
== END 2021-01-12 14:10 | disposition home or self-care (01) | DRG 432 ==
LOC: ER 09:12 → ERHOLD 10:57 → MED/SURG 11:45
PROVIDERS: ADMIT Internal Medicine; ATTEND Internal Medicine
DX: K74.60 Unspecified cirrhosis of liver (principal); K72.00 Acute and subacute hepatic failure without coma; K75.81 Nonalcoholic steatohepatitis (NASH); I10 Essential (primary) hypertension; E66.01 Morbid (severe) obesity due to excess calories; K21.9 Gastro-esophageal reflux disease without esophagitis; E78.5 Hyperlipidemia, unspecified; M25.552 Pain in left hip; Z20.822 Contact with and (suspected) exposure to COVID-19; Z68.36 Body mass index [BMI] 36.0-36.9, adult
CPT/HCPCS: 36415; 70450; 71045; 76700; 80053; 81001; 82140; 82550; 82553; 83735; 84484; 85025; 85610; 85730; 93005; 99284; U0002

== ENCOUNTER → 2021-06-09 | Day surgery (SDC) | payer OTHER ==
[2021-06-07 10:40] LABS: BASOPHILS % 0.5 % (0.0-1.0); EOSINOPHILS # (AUTO) 0.3 (0.0-0.4); EOSINOPHILS % 5.2 % (0.0-6.0); HEMATOCRIT 31.6 % (34.2-44.1); HEMOGLOBIN 9.8 g/dL (12.0-16.0); LYMPHOCYTES # (AUTO) 1.7 (1.0-3.2); LYMPHOCYTES % 28.9 % (18.0-39.1); MEAN CORPUSCULAR HEMOGLOBIN 25.2 pg (28-32); MEAN CORPUSCULAR VOLUME 81.2 fL (81-99); MONOCYTES # (AUTO) 0.5 (0.2-0.8); MONOCYTES % 8.5 % (4.4-11.3); NEUTROPHILS # (AUTO) 3.4 (2.1-6.9); NEUTROPHILS % 56.6 % (38.7-80.0); PLATELET COUNT 150 x10e3/uL (140-360); RED BLOOD COUNT 3.89 x10e6/uL (3.6-5.1); RED CELL DISTRIBUTION WIDTH 15.7 % (11.7-14.4)
[2021-06-07 10:52] LABS: INR 1.09; PROTHROMBIN TIME 15.1 seconds (11.9-14.5)
[2021-06-07 10:53] LABS: PARTIAL THROMBOPLASTIN TIME 31.3 seconds (23.8-35.5)
[2021-06-07 11:00] LABS: ALBUMIN 3.2 g/dL (3.5-5.0); ALBUMIN/GLOBULIN RATIO 0.7 (0.8-2.0); ANION GAP 10.8 mmol/L (8-16); CALCIUM 7.9 mg/dL (8.4-10.2); CREATININE, SERUM 0.81 mg/dL (0.57-1.11); POTASSIUM 3.8 mmol/L (3.5-5.1)
[~2021-06-09] MED LIST changes: +ALENDRONATE SOD70 MG PO; +FENTANYL CITRATE/PF 100MCG/2 ML INJ ONE; +HAIR, SKIN AND1 EAC1 PO; +LIDOCAINE HCL 2% LOCAL INJ 5 ML SDV VIAL INJ ONE; +MIDAZOLAM HCL 2 MG/2 ML VIAL ONE; +POVIDONE IODINE 0.05% 0.05 % ML PO ONE; +PROPOFOL IV EMULSION 10 MG/ML 20 ML VIAL ONE; +VITAMIN D PO; +VITAMIN E PO
[2021-06-09 12:10] VITALS: BP 146/82
== END | disposition home or self-care (01) ==
LOC: OR 09:40
PROVIDERS: ATTEND Internal Medicine Gastroenterology
DX: K74.60 Unspecified cirrhosis of liver (principal); Z86.010 Personal history of colon polyps; K25.3 Acute gastric ulcer without hemorrhage or perforation; K44.9 Diaphragmatic hernia without obstruction or gangrene; K21.9 Gastro-esophageal reflux disease without esophagitis; K64.8 Other hemorrhoids; Z71.3 Dietary counseling and surveillance; K72.90 Hepatic failure, unspecified without coma; D64.9 Anemia, unspecified; E66.9 Obesity, unspecified; I10 Essential (primary) hypertension; I47.1 Supraventricular tachycardia; M19.90 Unspecified osteoarthritis, unspecified site; F32.A Depression, unspecified; Z01.810 Encounter for preprocedural cardiovascular examination; Z01.812 Encounter for preprocedural laboratory examination; Z20.822 Contact with and (suspected) exposure to COVID-19; Z79.899 Other long term (current) drug therapy; Z68.38 Body mass index [BMI] 38.0-38.9, adult; Z87.891 Personal history of nicotine dependence; Z86.16 Personal history of COVID-19
CPT/HCPCS: 36415; 43239; 45378; 80053; 85025; 85610; 85730; 93005; J2001; J2250; J3010; U0002